=== PATIENT | female | born 1950 | race Caucasian/White ===

== ENCOUNTER 2016-05-21 08:46 | Day surgery (SDC) | payer MEDICARE, BC ==
[~2016-05-21 08:46] MED LIST: ADVAIR DIS14 PUFF/IN INH; ASPIRIN81 MG PO; B COMPLEX1 EACH PO; CALCIUM 600 +1 EAC3 PO; GLUCOSAMINE CH1 EAC1 PO; HYDROCHLOROTHIA25 MG PO; NIACIN500 M2 PO; OMEGA 3-6-9 CO400 MG PO; PROAIR HFA8.5 GM INH; TOPROL XL50 MG PO; VALIUM5 MG PO; VITAMIN C500 M1 PO
== END 2016-05-21 16:30 | disposition short-term general hospital (02) ==
LOC: SURGOP 08:46 → CLPAIN 08:46 → EDSTATUS 11:33 → SURGOP 16:30
PROC: 3E0R33Z Introduction of Anti-inflammatory into Spinal Canal, Percutaneous Approach (ICD-10-PCS; principal; 2016-05-21)
PROC: 3E0R3BZ Introduction of Anesthetic Agent into Spinal Canal, Percutaneous Approach (ICD-10-PCS; 2016-05-21)
DX: M54.17 Radiculopathy, lumbosacral region (principal); M51.36 Other intervertebral disc degeneration, lumbar region; J45.991 Cough variant asthma; I10 Essential (primary) hypertension; M62.81 Muscle weakness (generalized); Z79.82 Long term (current) use of aspirin; Z79.899 Other long term (current) drug therapy; Z87.898 Personal history of other specified conditions; Z98.49 Cataract extraction status, unspecified eye
CPT/HCPCS: J1040; Q9967